=== PATIENT | male | born 1965 | race African-American/Black ===

== ENCOUNTER 2021-08-06 14:19 | Emergency (ER) | payer OTHER ==
[~2021-08-06] VITALS: Ht 182.9 cm; Wt 76.0 kg
--- NOTE | 2021-08-06 14:36 | PHYS DOC ---
Adult General Chief Complaint Chief Complaint: SHORTNESS OF BREATH HPI HPI Patient is a 72-year-old male presenting via EMS for shortness of breath. Onset was several days ago without any known inciting event, trauma, ingestion, mechanism of injury or known exacerbating factor. States that he has numerous comorbid conditions, states that he has history of unknown diabetes mellitus, COPD, and hypertension for which she has not been taking any medications for for several months. Admits ongoing alcohol, tobacco and illicit drug use with specific recent use of marijuana and cocaine. Reports he called EMS today as he fell several days ago and has not been able to ambulate ever since due to generalized fatigue and shortness of breath prompting him to call EMS. Attempts were made to transport to local [facility] where patient has all care provided but they diverted patient to our facility. Patient does admit he is fully vaccinated against COVID-19 and that he is full CODE STATUS Review of Systems Review of Systems Fourteen body systems of review of systems have been reviewed. See HPI for pertinent positives and negative responses, other fagan all other systems are negative, non-pertinent or non-contributory Physical Exam Physical Exam Constitutional: Well developed, age-appropriate, moderate respiratory distress HENT: Normocephalic, atraumatic, bilateral external ears normal, oropharynx dry with poor dentition globally, no oral exudates, nose normal. Eyes: PERRLA, EOMI, conjunctiva normal, no discharge. Neck: Normal range of motion, no tenderness, supple, no stridor. Cardiovascular: Heart rate tachycardic, sinus rhythm, no murmurs rubs or gallops Lungs & Thorax: Increased work of breathing, tachypneic, hypoxic on room air, crackles present bilateral bases Abdomen: Bowel sounds normal, soft, no tenderness, no masses, no pulsatile masses. Nonsurgical abdomen, no peritoneal signs Skin: Warm, dry, no erythema, no rash. Back: No tenderness, no CVA tenderness. Extremities: No tenderness, no cyanosis, no clubbing, ROM intact, no edema. Neurologic: Alert and oriented X 3, grossly normal motor & sensory function, no focal deficits noted. Psychologic: Anxious affect and mood Current Patient Data Vital Signs Vital Signs Date Time Temp Pulse Resp B/P (MAP) Pulse Ox O2 Delivery O2 Flow Rate FiO2 08/06/21 14:19 98.6 110 60 90/60 (70) 90 NonRebreather Mask 15.0 Vital Signs Date Time Temp Pulse Resp B/P (MAP) Pulse Ox O2 Delivery O2 Flow Rate FiO2 08/06/21 14:19 98.6 110 60 90/60 (70) 90 NonRebreather Mask 15.0 Lab Results Laboratory Tests Test 08/06/21 14:35 08/06/21 14:53 White Blood Count 3.5 x10^3/uL Red Blood Count 5.38 x10^6/uL Hemoglobin 16.2 g/dL Hematocrit 49.6 % Mean Corpuscular Volume 92 fL Mean Corpuscular Hemoglobin 30 pg Mean Corpuscular Hemoglobin Concent 33 g/dL Red Cell Distribution Width 15.1 % Platelet Count 180 x10^3/uL Neutrophils (%) (Auto) 45 % Lymphocytes (%) (Auto) 38 % Monocytes (%) (Auto) 15 % Eosinophils (%) (Auto) 0 % Basophils (%) (Auto) 2 % Neutrophils # (Auto) 1.6 x10^3uL Lymphocytes # (Auto) 1.3 x10^3/uL Monocytes # (Auto) 0.5 x10^3/uL Eosinophils # (Auto) 0.0 x10^3/uL Basophils # (Auto) 0.1 x10^3/uL Bedside Venous pH 7.34 Bedside Venous pCO2 53 mmHg Bedside Venous pO2 36 mmHg Venous Blood HCO3 28 mmol/L POC Venous O2 Saturation (Pedro) 65 % Bedside FiO2 0 Sodium Level 131 mmol/L Potassium Level 4.8 mmol/L Chloride Level 95 mmol/L Carbon Dioxide Level 25 mmol/L Anion Gap 11 Blood Urea Nitrogen 21 mg/dL Creatinine 1.8 mg/dL Estimated GFR (Cockcroft-Gault) 38.9 BUN/Creatinine Ratio 12 Glucose Level 412 mg/dL Calcium Level 9.0 mg/dL Total Bilirubin 0.3 mg/dL Aspartate Amino Transf (AST/SGOT) 38 U/L Alanine Aminotransferase (ALT/SGPT) 43 U/L Alkaline Phosphatase 277 U/L Troponin I High Sensitivity 12 ng/L GV-Wpu-L-Type Natriuretic Peptide 175 pg/mL Total Protein 6.5 g/dL Albumin 2.7 g/dL Albumin/Globulin Ratio 0.7 Ethyl Alcohol Level < 10 mg/dL Influenza Type A (Rapid) Negative Influenza Type B (Rapid) Negative SARS-CoV-2 Antigen (Rapid) Positive Current Medications Medications (Trade) Dose Ordered Sig/Khurram Route PRN Reason Start Time Stop Time Status Last Admin Dose Admin Lorazepam (Ativan Inj) 1 mg 1X ONCE IVP 08/06/21 15:15 08/06/21 15:16 DC 08/06/21 15:21 Azithromycin 500 mg/Sodium Chloride 250 ml @ 250 mls/hr 1X ONCE IV 08/06/21 16:30 08/06/21 17:29 DC Dexamethasone Sodium Phosphate (Decadron) 6 mg 1X ONCE IVP 08/06/21 16:30 08/06/21 16:31 DC Sodium Chloride 500 ml @ 0 mls/hr 1X ONCE IV 08/06/21 16:30 08/06/21 16:31 DC EKG EKG EKG ordered and interpreted by myself at 1430 hrs. as sinus tachycardia at 105 bpm, unremarkable intervals, no axis deviation, no obvious ischemic findings, no STEMI Radiology/Procedures Radiology/Procedures EXAM: CHEST 1 VIEW History: Shortness of breath COMPARISON: None available. TECHNIQUE: Single portable radiograph of the chest FINDINGS: The cardiac silhouette is unremarkable. The lungs are clear bilaterally. The costophrenic sulci are clear and well demarcated. IMPRESSION: No radiographic evidence of an acute cardiopulmonary process. Electronically signed by: Scar Aden MD (08/06/2021 3:17 PM) [id number] Heart Score C/O Chest Pain: No HEART Score for Chest Pain: HEART Score for Chest Pain Response (Comments) Value History Slighlty/Non-Suspicious 0 ECG Nonspecific Repolarizatio 1 Age > 65 2 Risk Factors >3 Risk Factors or Hx CAD 2 Troponin < Normal Limit 0 Total 5 Risk Factors: Risk Factors: DM, Current or recent (<one month) smoker, HTN, HLP, family hist ory of CAD, obesity. Risk Scores: Risk Factors: DM, Current or recent (<one month) smoker, HTN, HLP, family history of CAD, obesity. Course & Med Decision Making Course & Med Decision Making Airway patent, breathing labored, IV access and vitals obtained concerning for tachypnea see on room air History, physical exam and comprehensive ER work-up concerning for COVID-19 infection in a vaccinated individual who openly reports medication noncompliance and recent marijuana and cocaine abuse Azithromycin, 6 mg IV Dex, 1 mg Ativan for agitation, and BiPAP significantly improved patient's respiratory status and overall clinical picture. With that said he was still requiring oxygen to maintain saturations greater than 90% Given that [facility], [facility] contacted and case discussed with Dr. Pruitt who ultimately accepted patient care for transfer. Patient updated and amenable to plan of care as stated Zoran Disclaimer Dragon Disclaimer This electronic medical record was generated, in whole or in part, using a voice recognition dictation system. Departure Departure: Impression: Primary Impression: Acute respiratory failure due to COVID-19 Additional Impressions: Illicit drug use Medical non-compliance HTN (hypertension) Disposition: 02 [facility]ORT TERM [facility]PITAL ([facility]) Admitting Physician: Other (dr pruitt) Condition: STABLE Referrals: PCP,NO (PCP) Problem Qualifiers SHANTELL BOUDREAUX DO Aug 06, 2021 14:36
[2021-08-06 15:09] LABS: BASO # 0.1 x10^3/uL (0.0-0.2); BASO % 2 % (0-3); EOS % 0 % (0-3); HEMATOCRIT 49.6 % (39.0-53.0); HEMOGLOBIN 16.2 g/dL (13.0-17.5); LYMPH # 1.3 x10^3/uL (1.0-4.8); LYMPH % 38 % (24-48); MEAN CORPUSCULAR HEMOGLOBIN 30 pg (25-35); MEAN CORPUSCULAR HGB CONC 33 g/dL (31-37); MEAN CORPUSCULAR VOLUME 92 fL (79-100); MONO # 0.5 x10^3/uL (0.0-1.1); MONO % 15 % (0-9); NEUT # 1.6 x10^3uL (1.8-7.7); NEUT % 45 % (31-73); PLATELET COUNT 180 x10^3/uL (140-400); RED BLOOD COUNT 5.38 x10^6/uL (4.30-5.70); RED CELL DISTRIBUTION WIDTH 15.1 % (11.5-14.5); WHITE BLOOD COUNT 3.5 x10^3/uL (4.0-11.0)
[2021-08-06 15:20] LABS: CREATININE 1.8 mg/dL (0.7-1.3); GFR 38.9; POTASSIUM 4.8 mmol/L (3.5-5.1)
--- NOTE | 2021-08-06 15:20 | RAD ---
EXAM: CHEST 1 VIEW History: Shortness of breath COMPARISON: None available. TECHNIQUE: Single portable radiograph of the chest FINDINGS: The cardiac silhouette is unremarkable. The lungs are clear bilaterally. The costophrenic sulci are clear and well demarcated. IMPRESSION: No radiographic evidence of an acute cardiopulmonary process. Electronically signed by: Scar Aden MD (08/06/2021 3:17 PM) [id number]
[2021-08-06 15:25] LABS: INFLUENZA A PATIENT NEGATIVE (NEGATIVE); INFLUENZA B PATIENT NEGATIVE (NEGATIVE)
--- NOTE | 2021-08-06 15:32 | EKG ---
[address] [address] Test Date: 2021-08-06 Test Time: 14:27:05 Pat Name: JANNY ROBERTS Department: Room: Gender: M Land Appraiser: UMER : 1965 Requested By: SHANTELL BOUDREAUX Order Number: [id number] Reading MD: Jose Alberto Martin Measurements Intervals [employer] Rate: 105 P: 77 NC: 142 QRS: 52 QRSD: 70 T: 82 QT: 322 QTc: 429 Interpretive Statements SINUS TACHYCARDIA LEFT ATRIAL ABNORMALITY NON SPECIFIC ST CHANGES Electronically Signed On 08-13-2021 17:50:24 [employer]OMATIC S[employer]OL[employer] OPERATOR by Jose Alberto Martin
[2021-08-06 15:33] LABS: ALBUMIN 2.7 g/dL (3.4-5.0); ALBUMIN/GLOBULIN RATIO 0.7 (1.0-1.7); TOTAL BILIRUBIN 0.3 mg/dL (0.2-1.0); TOTAL PROTEIN 6.5 g/dL (6.4-8.2)
[2021-08-06] MEDS ORDERED: IV NORMAL SALINE 250ML 250 ML ONE (19:13)
[2021-08-06] MEDS ORDERED: AZITHROMYCIN 500 MG VIAL. IV ONE (19:13)
[2021-08-06] MEDS: IV NORMAL SALINE 500ML 500 ML IV ONE (19:32)
[2021-08-06] MEDS: DEXAMETHASONE SOD PHOS 4 MG/ML VIAL. IVP ONE (19:33)
[2021-08-06] MEDS: AZITHROMYCIN 500 MG in IV NORMAL SALINE 250ML 250 ML IV ONE (19:33)
[2021-08-06 20:33] LABS: BARBITURATES NEG (NEG); BENZODIAZEPINES NEG (NEG); CANNABINOIDS POS (NEG); COCAINE POS (NEG); METHADONE NEG (NEG); OPIATES NEG (NEG); PHENCYCLIDINE NEG (NEG)
[2021-08-06 20:34] LABS: AMPHETAMINE/METHAMPHETAMINE NEG (NEG)
[2021-08-06 20:37] LABS: BILIRUBIN,URINE SMALL (NEG); CLARITY,URINE CLEAR; COLOR,URINE YELLOW; GLUCOSE,URINE >=1000 mg/dL (NEG)
[2021-08-06 20:38] LABS: BACTERIA,URINE 0 /HPF (0-FEW); HYALINE CASTS, URINE MOD /HPF; NITRITE,URINE NEG (NEG); RBC,URINE OCC /HPF (0-2); SQUAMOUS EPITHELIAL CELL,UR OCC /LPF; WBC,URINE 0 /HPF (0-4)
[2021-08-06 22:42] VITALS: BP 102/77
== END 2021-08-06 22:42 | disposition short-term general hospital (02) ==
LOC: ER 14:19
DX: U07.1 COVID-19 (principal); J96.00 Acute respiratory failure, unspecified whether with hypoxia or hypercapnia; I10 Essential (primary) hypertension; F19.10 Other psychoactive substance abuse, uncomplicated; Z91.19 Patient's noncompliance with other medical treatment and regimen
CPT/HCPCS: 36415; 71045; 80053; 80307; 81001; 82803; 83880; 84484; 85025; 93005; 94660; 96365; 96375; 99285; G0480; J0456; J1100; J2060; J7040; J7050